=== PATIENT | female | born 1995 ===

== ENCOUNTER 2017-12-03 23:45 | Emergency (ER) | payer OTHER ==
[2017-12-04] MEDS ORDERED: Sodium Chloride 0.9% 1,000 ML IV STA ×2 (00:53→02:54)
--- NOTE | 2017-12-04 00:56 | ED PDOC ---
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 Associated headache, nasal congestion, throat pain. Patient also states her left arm feels "tingly"; as per mother patient has had this on-and-off x 1 year, secondary to left shoulder/back pain. Denies neck pain/stiffness, nausea/vomiting, chest pain, shortness of breath, palpitations, abdominal pain, urinary symptoms, sick contacts. Patient visiting from [facility]; arrived one month ago Past Medical History Reviewed: Historical Data, Nursing Documentation, Vital Signs Vital Signs: Last Vital Signs Temp 102.8 F H 12/04/17 00:23 Pulse 129 H 12/04/17 00:23 Resp 18 12/04/17 00:23 BP 124/80 12/04/17 00:23 Pulse Ox 97 12/04/17 00:23 - Medical History PMH: No Chronic Diseases - Family History Family History: States: No Known Family Hx - Living Arrangements Living Arrangements: With Family - Home Medications Home Medications: Ambulatory Orders Medication Instructions Recorded Fluticasone Nasal [Flonase] 1 actuation NS BID #1 bottle 12/04/17 Ibuprofen [Motrin Tab] 1 tab PO Q6 PRN #20 tab 12/04/17 Penicillin V Potassium 500 mg PO BID #20 tab 12/04/17 - Allergies Allergies/Adverse Reactions: Allergies Allergy/AdvReac Type Severity Reaction Status Date / Time No Known Allergies Allergy Verified 12/04/17 00:23 Review of Systems ROS Statement: Except As Marked, All Systems Reviewed And Found Negative Constitutional: Positive for: Fever, Chills ENT: Positive for: Throat Pain Neurological: Positive for: Headache Physical Exam - Reviewed Nursing Documentation Reviewed: Yes Vital Signs Reviewed: Yes - Physical Exam Appears: Positive for: Well, Non-toxic, No Acute Distress Head Exam: Positive for: ATRAUMATIC, NORMAL INSPECTION, NORMOCEPHALIC Skin: Positive for: Normal Color ENT: Positive for: TM Is/Are (clear b/l), Pharyngeal Erythema, Tonsillar Exudate, Tonsillar Swelling (b/l. Uvula midline. Airway patent) Cardiovascular/Chest: Positive for: Regular Rate, Rhythm Respiratory: Positive for: Normal Breath Sounds Gastrointestinal/Abdominal: Positive for: Normal Exam Back: Positive for: Normal Inspection Extremity: Positive for: Normal ROM Neurologic/Psych: Positive for: Alert, Oriented (x3) - Laboratory Results Result Diagrams: 12/04/17 01:45 12/04/17 01:45 - ECG O2 Sat by Pulse Oximetry: 97 - Progress ED Course And Treament: labs, flu, strep, urine, Tylenol PO, IVF On re-eval, patient states she is feeling better. Still with complaints of throat pain and mild headache. IV toradol, IV decadron ordered On re-eval, patient states she is feeling better. Patient educated on findings, discharged with rx Penicillin VK, Flonase, Ibuprofen Advised follow up PMD within 2-3 days. Fluids. Rest. Return precautions given Disposition - Clinical Impression Clinical Impression: Paresthesia and pain of left extremity, Fever in adult, Tonsillitis - Patient ED Disposition Is Patient to be Admitted: No Counseled Patient/Family Regarding: Studies Performed, Diagnosis, Need For Followup, Rx Given - Disposition Referrals: [facility] [Outside] Disposition: Routine/Home Disposition Time: 05:00 Condition: IMPROVED Prescriptions: Fluticasone Nasal [Flonase] 1 actuation NS BID #1 bottle Ibuprofen [Motrin Tab] 1 tab PO Q6 PRN #20 tab PRN Reason: Fever >100.4 F Penicillin V Potassium 500 mg PO BID #20 tab Instructions: Sore Throat in Adults, Fever, Adult (DC), Paresthesias (DC) Print Language: [place]
[2017-12-04 02:18] LABS: VENOUS BLOOD GAS BASE EXCESS -11.7 mmol/L (0.0-2.0); VENOUS BLOOD GAS PCO2 51 mmHg (40-60); VENOUS BLOOD GAS PO2 78 mm/Hg (30-55); VENOUS BLOOD PH 7.14 (7.32-7.43)
[2017-12-04 02:19] LABS: BASO % 0.1 % (0.0-2.0); HEMOGLOBIN 12.5 g/dL (12.0-16.0); LYMPH # 1.1 K/uL (1.0-4.3); LYMPH % 13.6 % (20.0-40.0); MEAN CELL VOLUME 82.8 fl (81.0-99.0); MEAN CORPUSCULAR HGB CONC 33.8 g/dL (33.0-37.0); MEAN PLATELET VOLUME 9.4 fl (7.2-11.7); MONO # 0.9 K/uL (0.0-0.8); MONO % 10.8 % (0.0-10.0); NEUT # 6.3 K/uL (1.8-7.0); NEUT % 75.5 % (50.0-75.0); NRBC % 0.1 % (0.0-0.0); RBC 4.47 Mil/uL (3.80-5.20); RED CELL DISTRIBUTION WIDTH 13.6 % (11.5-14.5); WHITE BLOOD COUNT 8.3 K/uL (4.8-10.8)
[2017-12-04 02:27] LABS: ALB/GLOB RATIO 1.1 (1.0-2.1); ALBUMIN 4.1 g/dL (3.5-5.0); ALT/SGPT 20 U/L (9-52); AST/SGOT 21 U/L (14-36); BLOOD UREA NITROGEN 13 mg/dl (7-17); GFR NON-AFRICAN AMERICAN > 60
[2017-12-04 10:37] VITALS: BP 117/99; PULSE 93; RESP 18; TEMP 98; O2SAT 97
--- NOTE | 2017-12-04 19:12 | CARD ---
APPROVED REPORT Date of service: 12/04/2017 EKG Measurement Heart [id number] <Conclusion> Sinus tachycardia Otherwise normal ECG
== END 2017-12-04 05:30 | disposition home or self-care (01) ==
LOC: H.ER 23:45
DX: R50.9 Fever, unspecified (principal); J03.90 Acute tonsillitis, unspecified; R20.2 Paresthesia of skin
CPT/HCPCS: 80053; 81025; 82803; 85025; 86308; 87040; 87070; 87430; 87804; 93005; 99284; J1100; J1885; J7030